=== PATIENT | male | born 1950 | race Caucasian/White ===

== ENCOUNTER → 2022-04-29 | Outpatient (CLI) | payer MEDICARE, OTHER, SELFPAY ==
[2022-04-29 12:27] LABS: Protein:Creat Ratio 2353 mg/g CRE (0-200)
[2022-04-29 12:41] LABS: Albumin, Serum 3.4 g/dL (3.2-5.0); BUN 44 mg/dL (7-18); Calcium,Total 9.5 mg/dL (8.5-10.1); Chloride 108 mmol/L (98-107); Creatinine, Serum 1.83 mg/dL (0.70-1.30); EST Glomerular Filtration Rate 39 mL/min (>60); Est Glom Filt Rate - Afr Amer 47 mL/min (>60); Glucose 89 mg/dL (74-106); Phosphorus 4.2 mg/dL (2.5-4.9); Potassium 4.4 mmol/L (3.5-5.1); Sodium Level 139 mmol/L (136-145)
== END | disposition home or self-care (01) ==
PROVIDERS: Visit Provider Internal Medicine Nephrology
DX: N18.31 Chronic kidney disease, stage 3a (principal); R80.8 Other proteinuria
CPT/HCPCS: 36415; 80069; 82570; 84156

== ENCOUNTER → 2022-12-02 | Outpatient (CLI) | payer MEDICARE, OTHER, SELFPAY ==
[2022-12-02 13:23] LABS: Anion Gap 4 (5-15); BUN 32 mg/dL (7-18); BUN/Creat Ratio 18.9 RATIO (10-20); Chloride 109 mmol/L (98-107); Creatinine, Serum 1.69 mg/dL (0.70-1.30); EST Glomerular Filtration Rate 43 mL/min (>60); Est Glom Filt Rate - Afr Amer 52 mL/min (>60); Glucose 104 mg/dL (74-106); Potassium 4.3 mmol/L (3.5-5.1); Sodium Level 137 mmol/L (136-145)
== END | disposition home or self-care (01) ==
PROVIDERS: Visit Provider Internal Medicine Nephrology
DX: E87.5 Hyperkalemia (principal)
CPT/HCPCS: 36415; 80048

== ENCOUNTER → 2023-06-09 | Outpatient (CLI) | payer MEDICARE, OTHER, SELFPAY ==
[2023-06-09 14:24] LABS: Protein, Urine (Random) 615.3 mg/dL (<11.9); Protein:Creat Ratio 4770 mg/g CRE (0-200)
== END | disposition home or self-care (01) ==
LOC: POLAB3 12:08
PROVIDERS: Visit Provider Internal Medicine Nephrology
DX: R80.8 Other proteinuria (principal)
CPT/HCPCS: 82570; 84156

== ENCOUNTER → 2024-05-31 | Outpatient (CLI) | payer MEDICARE, OTHER, SELFPAY ==
[2024-05-31 11:50] LABS: Anion Gap 3 (5-15); BUN 41 mg/dL (7-18); BUN/Creat Ratio 17.7 RATIO (10-20); Calcium,Total 9.3 mg/dL (8.5-10.1); Chloride 110 mmol/L (98-107); Creatinine, Serum 2.32 mg/dL (0.70-1.30); EST Glomerular Filtration Rate 30 mL/min (>60); Est Glom Filt Rate - Afr Amer 36 mL/min (>60); Glucose 107 mg/dL (74-106); Potassium 4.9 mmol/L (3.5-5.1); Sodium Level 137 mmol/L (136-145)
== END | disposition home or self-care (01) ==
LOC: POLAB3 10:43
PROVIDERS: Visit Provider Internal Medicine Nephrology
DX: E87.5 Hyperkalemia (principal)
CPT/HCPCS: 36415; 80048

== ENCOUNTER → 2025-07-03 | Outpatient (CLI) | payer MEDICARE, OTHER, SELFPAY ==
[2025-07-03 12:15] LABS: Potassium 5.3 mmol/L (3.3-5.1)
== END | disposition home or self-care (01) ==
LOC: POLAB3 10:57
PROVIDERS: Visit Provider Internal Medicine Nephrology
DX: E87.5 Hyperkalemia (principal)
CPT/HCPCS: 36415; 84132